=== PATIENT | female | born 1985 | race Two or more races ===

== ENCOUNTER 2023-11-06 05:57 | Day surgery (SDC) | payer OTHER | END 2023-11-06 14:40 | disposition home or self-care (01) | LOC: CIR.AMB 05:57 | PROVIDERS: ATTEND Obstetrics & Gynecology Maternal & Fetal Medicine | DX: O02.1 Missed abortion (principal); O72.2 Delayed and secondary postpartum hemorrhage; Z20.822 Contact with and (suspected) exposure to COVID-19 ==

== ENCOUNTER 2025-02-02 22:13 | Outpatient (CLI) | payer OTHER ==
[2025-02-02 21:45] VITALS: BP 118/81
[2025-02-02] MEDS ORDERED: RINGERS SOLUTION,LACTATED 1,000 ML IV SCH (22:30)
[2025-02-02 23:20] VITALS: BP 114/72
[2025-02-02 23:23] LABS: HEMATOCRIT 31.9 % (36.0-45.00); HEMOGLOBIN 11.3 g/dL (12.0-15.00); MEAN CELL VOLUME 86.1 fL (80.00-100.00); MEAN CORPUSCULAR HEMOGLOBIN 30.4 pg (27.00-32.0); MEAN CORPUSCULAR HGB CONC 35.3 g/dl (32.0-36.0); PLATELET COUNT 202 K/uL (150-450); RED BLOOD COUNT 3.71 M/uL (4.00-6.00); RED CELL DISTRIBUTION WIDTH 13.9 % (11.5-14.5)
[2025-02-03 03:30] VITALS: BP 116/74
[2025-02-03 06:45] VITALS: BP 130/76; O2SAT 98
[2025-02-03 09:10] VITALS: BP 130/76
== END 2025-02-03 09:43 | disposition home or self-care (01) ==
LOC: OBS/DEL 22:13
PROVIDERS: ATTEND Obstetrics & Gynecology
DX: O26.852 Spotting complicating pregnancy, second trimester (principal); Z3A.25 25 weeks gestation of pregnancy

== ENCOUNTER 2025-05-11 11:13 | Inpatient (IN) | payer OTHER ==
[~2025-05-11] VITALS: Ht 167.6 cm; Wt 4.5 kg
[2025-05-11 11:42] LABS: BASO % 0.2 % (0.1-1.2); EOS # 0.19 (0.04-0.54); EOS % 2.4 % (0.7-7.0); LYMPH # 1.20 (1.18-3.74); LYMPH % 14.9 % (19.3-53.1); MEAN PLATELET VOLUME 10.90 fl (9.4-12.4); MONO # 0.42 (0.24-0.82); MONO % 5.2 % (4.7-12.5); NEUT # 6.18 (1.56-6.13); NEUT % 76.8 % (34.0-71.1); RED CELL DISTRIBUTION WIDTH 13.9 % (11.6-14.4)
[2025-05-11 11:54] LABS: INR 0.94
[2025-05-11 12:12] LABS: ALT/SGPT 34.0 U/L (12-78); AST/SGOT 17.0 U/L (15-37); BILIRUBIN TOTAL 0.41 mg/dL (0.3-1.2); BUN CREA RATIO 14.0 (7.0-25.0); CREATININE SERUM 0.65 mg/dL (0.55-1.02); GFR 100.45; GLOBULINA 3.5 G/DL (2.4-3.5); GLUCOSE FASTING 160.0 mg/dL (65-100); OSMOLALITY SERUM 285.0 MOSM/KG (275-295)
[2025-05-12 06:11] VITALS: BP 116/80
[2025-05-12] MEDS ORDERED: CITRIC ACID/SODIUM CITRATE 30 ML BLIST.PACK PO ONE (07:20)
[2025-05-12] MEDS ORDERED: CEFAZOLIN SODIUM 1,000 MG VIAL ONE (07:20)
[2025-05-12] MEDS ORDERED: OXYTOCIN 10 UNITS/ML VIAL ONE (07:58)
[2025-05-12] MEDS ORDERED: ERYTHROMYCIN BASE OPHT 1GM EACH TUBE OP ONE (07:58)
[2025-05-12] MEDS ORDERED: MORPHINE SULFATE 4 MG/ML CARTRIDGE IV PRN (12:45)
[2025-05-12] MEDS ORDERED: MORPHINE SULFATE 4 MG/ML VIAL IV ONE ×2 (13:00→16:00)
[2025-05-12] MEDS ORDERED: CHLORHEXIDINE GLUCONATE 120 ML BOTTLE TOP ONE (14:00)
[2025-05-12] MEDS ORDERED: CEFAZOLIN SODIUM 1,000 MG VIAL IV SCH (14:00)
[2025-05-12 16:45] VITALS: BP 116/73
[2025-05-12 20:26] VITALS: BP 121/76
[2025-05-13] VITALS: BP 109/70
[2025-05-13] MEDS ORDERED: KETOROLAC TROMETHAMINE 10 MG TABLET PO SCH (07:41)
[2025-05-13] MEDS ORDERED: OxyCODONE HCL 5 MG TABLET (ROXICODONE) PO SCH (08:00)
[2025-05-13 09:31] VITALS: BP 108/68
[2025-05-13 11:01] LABS: BASO % 0.2 % (0.1-1.2); EOS # 0.18 (0.04-0.54); EOS % 1.6 % (0.7-7.0); LYMPH # 0.93 (1.18-3.74); LYMPH % 8.5 % (19.3-53.1); MEAN PLATELET VOLUME 11.10 fl (9.4-12.4); MONO # 0.88 (0.24-0.82); MONO % 8.1 % (4.7-12.5); NEUT # 8.84 (1.56-6.13); NEUT % 81.0 % (34.0-71.1); RED CELL DISTRIBUTION WIDTH 14.3 % (11.6-14.4)
[2025-05-13 16:08] VITALS: BP 114/75
[2025-05-14 00:31] VITALS: BP 104/67
[2025-05-14 08:55] VITALS: BP 110/70
[2025-05-14 16:26] VITALS: BP 123/81
[2025-05-15 00:07] VITALS: BP 116/71
[2025-05-15 04:00] VITALS: BP 115/76
[2025-05-15 08:03] VITALS: BP 119/74
== END 2025-05-15 13:10 | disposition home or self-care (01) | DRG 788 ==
LOC: O/R 05-12 07:24 → OB/GYN 05-12 07:24 → O/R 05-12 09:23 → OB/GYN 05-12 12:30 → LDR 05-17 11:08
PROVIDERS: Obstetrics & Gynecology Maternal & Fetal Medicine; ADMIT Obstetrics & Gynecology; ATTEND Obstetrics & Gynecology
PROC: 4A1HXCZ Monitoring of Products of Conception, Cardiac Rate, External Approach (ICD-10-PCS; 2025-05-12)
PROC: 10D00Z1 Extraction of Products of Conception, Low, Open Approach (ICD-10-PCS; principal; 2025-05-12 22:45)
DX: O36.63X0 Maternal care for excessive fetal growth, third trimester, not applicable or unspecified (principal); Z3A.39 39 weeks gestation of pregnancy; Z37.0 Single live birth